=== PATIENT | male | born 1960 | race African-American/Black ===

== ENCOUNTER 2019-05-21 01:19 | Emergency (ER) | payer OTHER ==
[2019-05-21 01:48] VITALS: BMI 26.4
[2019-05-21 02:45] LABS: BASO % 0.7 % (0-2.0); EOS % 6.5 % (0-4.5); HEMATOCRIT 45.4 % (35.4-49); HEMOGLOBIN 15.5 GM/dL (11.7-16.9); LYMPH % 48.5 % (8-40); MCHC 34.3 g/dl (32.0-35.9); MEAN CELL VOLUME 93.4 fl (80-96); MEAN PLT VOLUME 8.3 fl (7.5-11.1); MONO % 13.6 % (3.8-10.2); NEUT % 30.7 % (42.8-82.8); PLATELET COUNT 172 K/MM3 (134-434); RBC 4.86 M/mm3 (4.00-5.60); RDW 12.8 % (11.9-15.9)
--- NOTE | 2019-05-21 02:48 | PDOC ---
History of Present Illness - General Chief Complaint: Weakness Stated Complaint: RIGHT ARM WEAKNESS Time Seen by Provider: 05/21/19 01:44 History Source: Patient Exam Limitations: No Limitations - History of Present Illness Initial Comments: 05/21/19 02:46 59y M with no significant PMH presenting to ED with complaints of R arm weakness x3-4w. Patient states he noticed that his wrist was getting weaker and his arm as well. States the entire arm feels numb. 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 He does not recall getting imaging of his back. He denies headache, changes in vision, neck pain, chest pain, sob, abdominal pain, urinary retention /incontinence. He remembers grabbing on to the ladder with his R hand before he fell. PMD: in the [place] PMH: none Meds: none Allergies: nkda Social: denies Past History - Past Medical History Allergies/Adverse Reactions: Allergies Allergy/AdvReac Type Severity Reaction Status Date / Time No Known Allergies Allergy Verified 05/21/19 01:47 Home Medications: Ambulatory Orders NK [No Known Home Medication] 05/21/19 - Psycho Social/Smoking Cessation Hx Smoking History: Never smoked Have you smoked in the past 12 months: No Information on smoking cessation initiated: No Hx Alcohol Use: No Drug/Substance Use Hx: No Review of Systems - Review of Systems Constitutional: No: Symptoms Reported HEENTM: No: Symptoms Reported Respiratory: No: Symptoms reported Cardiac (ROS): No: Symptoms Reported ABD/GI: No: Symptoms Reported : No: Symptoms Reported Musculoskeletal: Yes: See HPI Integumentary: No: Symptoms Reported Neurological: Yes: See HPI *Physical Exam - Vital Signs Last Vital Signs Temp Pulse Resp BP Pulse Ox 97.6 F 58 L 20 121/70 99 05/21/19 01:47 05/21/19 01:47 05/21/19 01:47 05/21/19 01:47 05/21/19 01:47 - Physical Exam General Appearance: Yes: Nourished, Appropriately Dressed. No: Apparent Distress HEENT: positive: EOMI, YESENIA, Normal ENT Inspection Neck: positive: Trachea midline, Supple. negative: Lymphadenopathy (R), Lymphadenopathy (L) Respiratory/Chest: positive: Lungs Clear, Normal Breath Sounds. negative: Crackles, Rales, Rhonchi, Stridor, Wheezing Cardiovascular: positive: Regular Rhythm, Regular Rate, S1, S2. negative: Edema , JVD, Murmur Gastrointestinal/Abdominal: positive: Normal Bowel Sounds, Soft. negative: Tender Musculoskeletal: negative: CVA Tenderness Extremity: positive: Normal Capillary Refill, Other (cast on R leg). 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 decreased sensation in R arm). negative: Motor Strength 5/5 (decreased strenght in R arm) ED Treatment Course - LABORATORY CBC & Chemistry Diagram: 05/21/19 02:30 05/21/19 02:30 - RADIOLOGY Radiology Studies Ordered: Category Date Time Status CERVICAL SPINE CT W/O CONTR [CT] Stat CT Scan 05/21/19 01:[address] WITHOUT CONTRAST [CT] Stat CT Scan 05/21/19 01:[address] W/O CONTRAST [CT] Stat CT Scan 05/21/19 01:55 Ordered Medical Decision Making - Medical Decision Making 05/21/19 07:12 59y M presenting with R arm weakness. vitals wnl. decreased R arm strength extension >flexion. poor wrist extension. numbness in arm globally. ddx includes but not limited to c spine injury/fracture, bleed, mass, nerve root injury. will obtain basic blood work, ct head, ct cspine and thoracic spine due to tenderness. labs wnl ct head negative for acute pathology; no bleeds or mass ct cspine shows pedicle of c6 dislodged. no other spinal injury ct of thoracic spine is negative for fracture. 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 does not require emergent intervention at this time. will provide referral to nsurg and neurology. advised patient to f/u with pmd because his network might need pmd referral to nsrgy. safe for dc home. patient ambulated here with crutches. Discharge - Discharge Information Problems reviewed: Yes Clinical Impression/Diagnosis: Right arm weakness Condition: Stable Disposition: HOME - Admission No - Follow up/Referral Referrals: Saeid Verma MD, [facility] [Staff Physician] - Franky Calderón MD [Staff Physician] - - Patient Discharge Instructions Additional Instructions: You were seen in the emergency room today for weakness in the right arm. This seems to be a nerve injury caused by your fall. The CT scan shows a part of the cervical spine bone that is broken and it could be impinging the nerve. Referrals to neurosurgery and neurology is provided below. Please try to set up an appointment. Sometimes due to insurance policies, your primary care doctor would have to refer you. Please make an appointment with your primary care doctor. Come back to the emergency room if you have dizziness, have a hard time breathing, numbness/weakness in your legs, worsening back pain, difficulty urinating or if any new or concerning symptom develops. Thank you - Post Discharge Activity
--- NOTE | 2019-05-21 03:01 | PDOC ---
Attending Attestation - Resident Resident Name: Siomara Lanza - ED Attending Attestation I have performed the following: I have examined & evaluated the patient, The case was reviewed & discussed with the resident, I agree w/resident's findings & plan, Exceptions are as noted - HPI HPI: 05/21/19 05:59 See resident HPI - Physicial Exam PE: 05/21/19 07:45 Agree with resident exam - Medical Decision Making 05/21/19 07:45 Focal motor weakness of RUE in radial distribution, global RUE decrease in sensation but greatest in radial distribution Symptoms presented about a week after recent trauma of fall off a ladder and breaking his ankle Endorses grabbing at the ladder with his RUE on the way down and partially breaking his fall before 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
[2019-05-21 03:11] LABS: ALBUMIN 4.1 g/dl (3.4-5.0); BILIRUBIN,TOTAL 0.7 mg/dL (0.2-1); BLOOD UREA NITROGEN 12.9 mg/dL (7-18); CALCIUM 9.3 mg/dL (8.5-10.1); CREATININE 0.8 mg/dL (0.55-1.3); POTASSIUM 4.3 mmol/L (3.5-5.1); TOT PROT 7.1 g/dl (6.4-8.2)
[2019-05-21 05:15] VITALS: BP 124/76; PULSE 62; TEMP 99.6
[2019-05-21 05:18] LABS: INR 1.05 (0.83-1.09); PROTHROMBIN TIME (PATIENT) 12.4 SEC (9.7-13.0)
== END 2019-05-21 05:16 | disposition home or self-care (01) ==
LOC: JER 01:19
DX: S14.3XXS Injury of brachial plexus, sequela (principal); S12.590S Other displaced fracture of sixth cervical vertebra, sequela; W19.XXXS Unspecified fall, sequela; R29.898 Other symptoms and signs involving the musculoskeletal system; R20.0 Anesthesia of skin
CPT/HCPCS: 36415; 70450-TC; 72125-TC; 72128-TC; 80053; 85025; 85610; 85730; 99283-25